=== PATIENT | female | born 1975 | race Caucasian/White ===

== ENCOUNTER → 2024-09-10 15:21 | Outpatient (REF) | payer OTHER, SELFPAY | LOC: RAD 15:21 | PROVIDERS: ATTENDING PHYSICIAN Nurse Practitioner Adult Health | DX: R93.89 Abnormal findings on diagnostic imaging of other specified body structures (principal) | CPT/HCPCS: 71046 ==

== ENCOUNTER → 2024-09-28 09:03 | Outpatient (REF) | payer OTHER, SELFPAY | LOC: WDC 09:03 | PROVIDERS: ATTENDING PHYSICIAN Nurse Practitioner Adult Health | DX: Z12.31 Encounter for screening mammogram for malignant neoplasm of breast (principal) | CPT/HCPCS: 77063; 77067 ==

== ENCOUNTER 2024-11-05 06:25 | Day surgery (SDC) | payer OTHER, SELFPAY | END 2024-11-05 08:58 | disposition home or self-care (01) | LOC: GI 06:25 | PROVIDERS: ATTENDING PHYSICIAN Internal Medicine | DX: Z12.11 Encounter for screening for malignant neoplasm of colon (principal); K64.9 Unspecified hemorrhoids; K57.30 Diverticulosis of large intestine without perforation or abscess without bleeding; D12.4 Benign neoplasm of descending colon; Z83.719 Family history of colon polyps, unspecified | CPT/HCPCS: 45380; 88305 ==

== ENCOUNTER → 2025-09-29 17:53 | Outpatient (REF) | payer OTHER, SELFPAY | LOC: WDC 17:53 | PROVIDERS: ATTENDING PHYSICIAN Nurse Practitioner Adult Health | DX: Z12.31 Encounter for screening mammogram for malignant neoplasm of breast (principal) | CPT/HCPCS: 77063; 77067 ==